=== PATIENT | female | born 1985 | race Caucasian/White ===

== ENCOUNTER 2016-06-04 20:00 | Emergency (ER) | payer OTHER ==
[2016-06-04 20:32] VITALS: BP 135/88
[2016-06-04] MEDS ORDERED: HYDROCODONE/ACETAMINOPHEN 5-325 MG TABLET PO ONE (20:33)
--- NOTE | 2016-06-04 20:36 | ER Document Report ---
ED Medical Screen (RME) - General Stated Complaint: SEVERE TOOTH ACHE Notes: Patient complains of right upper dental pain for the last couple of months, worse the last 2 weeks. Seen by dentist Monday, given antibiotics and a couple of pain pills. Continues to have pain to that tooth even though she is taking the antibiotics. She has an appointment Monday with [facility] in [place]. No fever. I have greeted and performed a rapid initial assessment of this patient. A comprehensive ED assessment and evaluation of the patient, analysis of test results and completion of the medical decision making process will be conducted by additional ED providers. TRAVEL OUTSIDE OF THE [place] IN LAST 30 DAYS: No - Related Data Allergies/Adverse Reactions: morphine Allergy (Verified 04/12/16 06:25) Past Medical History Pulmonary Medical History: Reports: Hx Asthma Psychiatric Medical History: Reports: Hx Anxiety, Hx Post Traumatic Stress Disorder Past Surgical History: Reports: Hx Abdominal Surgery - EXPLORATORY, Hx Cholecystectomy - Immunizations Hx Diphtheria, Pertussis, Tetanus Vaccination: Yes Physical Exam - Vital signs Vitals: Temp Pulse Resp BP Pulse Ox 98.2 F 99 16 135/88 H 100 06/04/16 20:29 06/04/16 20:29 06/04/16 20:29 06/04/16 20:29 06/04/16 20:29 Course - Vital Signs Vital signs: Temp Pulse Resp BP Pulse Ox 98.2 F 99 16 135/88 H 100 06/04/16 20:29 06/04/16 20:29 06/04/16 20:29 06/04/16 20:29 06/04/16 20:29
[2016-06-04] MEDS ORDERED: HYDROCODONE/ACETAMINOPHEN 5-325 MG 6 TAB/DSPK PO PRN (21:47)
--- NOTE | 2016-06-04 21:53 | ER Document Report ---
ED Oral Problem - General Chief Complaint: Toothache Stated Complaint: SEVERE TOOTH ACHE Time seen by provider: 21:48 Mode of Arrival: Ambulatory Information source: Patient TRAVEL OUTSIDE OF THE [place] IN LAST 30 DAYS: No - HPI Patient complains to provider of: Toothache Onset: Last week Onset: Gradual Quality of pain: Achy Severity: Moderate Pain Level: 3 Associated symptoms: Toothache Relieved by: Nothing Similar symptoms previously: Yes Recently seen / treated by doctor/dentist: Yes Notes: Patient is a 30-year-old female presenting to the emergency room complaining of dental pain, states she recently saw a dentist and was diagnosed with a dental infection/abscess, she was started on antibiotics for this and given pain medication which she recently ran out of, she continues to take amoxicillin as prescribed, however she is requesting some additional pain medication, she reports that she has and follow-up with a dentist on Monday - Related Data Allergies/Adverse Reactions: morphine Allergy (Verified 06/04/16 20:34) Home Medications: Current Home Medications Amoxicillin [Amoxicillin] 1 cap PO Q8H 06/04/16 [History] Ibuprofen [Ibuprofen] 1 tab PO Q8HP PRN 06/04/16 [History] Past Medical History - General Information source: Patient - Social History Smoking Status: Unknown if Ever Smoked Family History: None Pulmonary Medical History: Reports: Hx Asthma Renal/ Medical History: Denies: Hx Peritoneal Dialysis Psychiatric Medical History: Reports: Hx Anxiety, Hx Depression, Hx Post Traumatic Stress Disorder Past Surgical History: Reports: Hx Abdominal Surgery - EXPLORATORY LAP, Hx Cholecystectomy - Immunizations Hx Diphtheria, Pertussis, Tetanus Vaccination: Yes Review of Systems - Review of Systems Constitutional: No symptoms reported EENT: See HPI Cardiovascular: No symptoms reported Respiratory: No symptoms reported Gastrointestinal: No symptoms reported Genitourinary: No symptoms reported Female Genitourinary: No symptoms reported Musculoskeletal: No symptoms reported Skin: No symptoms reported Hematologic/Lymphatic: No symptoms reported Neurological/Psychological: No symptoms reported -: Yes All other systems reviewed and negative Physical Exam - Vital signs Vitals: Temp Pulse Resp BP Pulse Ox 98.2 F 99 16 135/88 H 100 06/04/16 20:29 06/04/16 20:29 06/04/16 20:29 06/04/16 20:29 06/04/16 20:29 Interpretation: Normal - Notes Notes: - General General appearance: Appears well, Alert In distress: None - HEENT Head: Normocephalic, Atraumatic Eyes: Normal Conjunctiva: Normal Extraocular movements intact: Yes Eyelashes: Normal Pupils: PERRL - Respiratory Respiratory status: No respiratory distress - Cardiovascular Rhythm: Regular - Abdominal Inspection: Normal - Back Back: Normal - Extremities General upper extremity: Normal inspection General lower extremity: Normal inspection - Neurological Neuro grossly intact: Yes Orientation: AAOx4 Robards Coma Scale Eye Opening: Spontaneous Robards Coma Scale Verbal: Oriented Yfn Coma Scale Motor: Obeys Commands Robards Coma Scale Total: 15 - Psychological Associated symptoms: Normal affect, Normal mood - Skin Skin Temperature: Warm Skin Moisture: Dry Skin Color: Normal - HEENT Mouth/Lips: Caries Mucous membranes: Normal Teeth diagram: 1 - Mild erythema and swelling Course - Re-evaluation Re-evalutation: 06/04/16 23:19 Patient provided with pain medication, advised to follow-up with her dentist on Monday as directed, return if symptoms worsen, patient acknowledges understanding and agreement with this plan - Vital Signs Vital signs: Temp Pulse Resp BP Pulse Ox 98.2 F 74 15 135/88 H 98 06/04/16 20:29 06/04/16 22:01 06/04/16 22:01 06/04/16 20:29 06/04/16 22:01 Discharge - Discharge Clinical Impression: Toothache Condition: Stable Disposition: HOME, SELF-CARE Instructions: Oral Narcotic Medication ([facility]), Toothache ([facility]) Additional Instructions: Follow up with your dentist in one to 2 days. Return to the emergency room immediately if symptoms worsen or any additional concerns. Prescriptions: Hydrocodone/Acetaminophen [Hydrocodon-Acetaminophen 5-325] 1 each PO Q6 #20 tablet
== END 2016-06-04 22:01 | disposition home or self-care (01) ==
LOC: ER 20:00
DX: K04.7 Periapical abscess without sinus (principal); K02.9 Dental caries, unspecified; K08.89 Other specified disorders of teeth and supporting structures; J45.909 Unspecified asthma, uncomplicated; Z88.5 Allergy status to narcotic agent; Z88.0 Allergy status to penicillin; Z88.6 Allergy status to analgesic agent
CPT/HCPCS: 99283